=== PATIENT | female | born 1940 | race Native Hawaiian/Other Pacific Islander ===

== ENCOUNTER 2022-07-28 12:14 | Emergency (ER) | payer OTHER, BC ==
[~2022-07-28] VITALS: Ht 149.9 cm; Wt 78.9 kg
[2022-07-28 12:53] LABS: PLATELET COUNT 355 K/uL (152-353)
[2022-07-28 13:00] LABS: POTASSIUM 4.9 mmol/L (3.6-5.2)
== END 2022-07-28 14:45 | disposition home or self-care (01) ==
LOC: ED 12:14
PROVIDERS: Emergency Medicine Emergency Medical Services
DX: S22.088A Other fracture of T11-T12 vertebra, initial encounter for closed fracture (principal); S16.1XXA Strain of muscle, fascia and tendon at neck level, initial encounter; R51.9 Headache, unspecified; W01.0XXA Fall on same level from slipping, tripping and stumbling without subsequent striking against object, initial encounter; Y92.89 Other specified places as the place of occurrence of the external cause
CPT/HCPCS: 80048; 85027; 93005; 99283

== ENCOUNTER 2022-09-01 09:09 | Observation (INO) | payer OTHER, BC ==
[~2022-09-01] VITALS: Ht 149.9 cm; Wt 80.5 kg
[2022-09-01 09:14] VITALS: BP 160/76; TEMP 98.2
[2022-09-01 09:54] LABS: PLATELET COUNT 387 K/uL (152-353)
[2022-09-01 10:02] LABS: POTASSIUM 4.5 mmol/L (3.6-5.2)
[2022-09-01 12:30] VITALS: BP 138/72
[2022-09-01] MEDS ORDERED: ALOGLIPTIN25 MG PO (15:43)
[2022-09-01] MEDS ORDERED: GABA300C2 PO (15:43)
[2022-09-01] MEDS ORDERED: AMLO2.5T PO (15:43)
[2022-09-01] MEDS ORDERED: EUTHYROX100 MCG PO (15:44)
[2022-09-01] MEDS ORDERED: CYAN10009 IM (15:45)
[2022-09-01] MEDS ORDERED: TRULICITY1.5 MG/0.5 SC (15:45)
[2022-09-01] MEDS ORDERED: TAMS0.4C PO (15:46)
[2022-09-01] MEDS ORDERED: ESCI20TA PO (15:46)
[2022-09-01] MEDS ORDERED: CLOP75TA2 PO (15:47)
[2022-09-01] MEDS ORDERED: HYDR5TAB9 PO (15:47)
[2022-09-01] MEDS ORDERED: MONT10TA PO (15:47)
[2022-09-01] MEDS ORDERED: METO25TA4 PO (15:48)
[2022-09-01] MEDS ORDERED: GLIM4TAB PO (15:48)
[2022-09-01] MEDS ORDERED: MIDODRINE5 MG PO (15:49)
[2022-09-01] MEDS ORDERED: TRAZ100T PO (15:49)
[2022-09-01] MEDS ORDERED: LIPITOR40 MG PO (15:50)
[2022-09-01 15:58] VITALS: BP 149/74; TEMP 98.3; Ht 149.9 cm; Wt 80.5 kg
[2022-09-01 16:00] VITALS: BP 149/74; TEMP 98.3
[2022-09-01 20:00] VITALS: BP 166/84; TEMP 98
[2022-09-01 23:56] VITALS: BP 141/77; TEMP 98.3
[2022-09-02 03:52] VITALS: BP 149/76; TEMP 98.3
[2022-09-02 07:01] LABS: PLATELET COUNT 355 K/uL (152-353)
[2022-09-02 08:00] VITALS: BP 149/79; TEMP 98.4
[2022-09-02 12:00] VITALS: BP 141/70; TEMP 98.4
[2022-09-02 16:00] VITALS: BP 147/73; TEMP 98.6
[2022-09-02 19:46] VITALS: BP 147/82; TEMP 98.3
[2022-09-02 23:31] VITALS: BP 149/71; TEMP 97.6
[2022-09-03 03:41] VITALS: BP 138/68; TEMP 98.4
[2022-09-03 07:00] VITALS: BP 140/71; TEMP 98.3
[2022-09-03 08:15] LABS: PLATELET COUNT 253 K/uL (152-353)
[2022-09-03 12:00] VITALS: BP 102/73; TEMP 98.4
[2022-09-03 16:00] VITALS: BP 146/49; TEMP 98.4
[2022-09-04] VITALS: BP 147/70; TEMP 98.3
[2022-09-04 04:00] VITALS: BP 144/76; TEMP 98.2
[2022-09-04 08:00] VITALS: BP 138/65; TEMP 98.2
[2022-09-04 12:00] VITALS: BP 128/67; TEMP 98.2
[2022-09-04] MEDS ORDERED: FAMOTIDINE20 MG PO (12:06)
[2022-09-04] MEDS ORDERED: LEVO0.1T6 PO (12:08)
[2022-09-04] MEDS ORDERED: PANTOPRAZOLE 40MG TA PO (12:09)
[2022-09-04] MEDS ORDERED: SIME80CH32 PO (12:11)
[2022-09-04] MEDS ORDERED: ONDANSETRON HYDR8 MG SL (12:15)
== END 2022-09-04 13:58 | disposition home or self-care (01) ==
LOC: ED 09:09 → MED/SURG 14:00
PROVIDERS: ADMIT Internal Medicine; ATTEND Internal Medicine
DX: K52.89 Other specified noninfective gastroenteritis and colitis (principal); E03.8 Other specified hypothyroidism; E86.0 Dehydration; I10 Essential (primary) hypertension; E11.9 Type 2 diabetes mellitus without complications; I25.10 Atherosclerotic heart disease of native coronary artery without angina pectoris; E53.8 Deficiency of other specified B group vitamins; F32.89 Other specified depressive episodes; G62.89 Other specified polyneuropathies
CPT/HCPCS: 80048; 80053; 81002; 82948; 84439; 84443; 85027; 87015; 87045; 87502; 87635; 87899; 96360; 96361; 96365; 96367; 96374; 96375; 96376; 99221; 99284; G0378; J2405; J3490; U0003